=== PATIENT | male | born 1990 | race Two or more races ===

== ENCOUNTER → 2017-01-13 | Outpatient (CLI) | payer OTHER ==
--- NOTE | 2017-01-14 15:30 | SLEEP ---
DATE OF STUDY: 01/13/2017 ATTENDING PHYSICIAN: Dr. oBb Nettles. The patient is 26 years old who weighs 320 pounds with a BMI of 48.7. The patient's [place] score was 7. A home sleep study was performed at [facility]. Total recording time was 407 minutes. During the night study, the patient had no central apneas, no mixed apneas, but there were 263 obstructive apneas and 33 hypopneas. The patient's AHI was 44 per hour, supine AHI 39 per hour. Nocturnal oximetry study revealed hypoxemia. The patient's average oxygen saturation is 89% with the lowest of 59%. 103 minutes were spent in oxygen saturation less than 90%. Mean heart rate was 69 beats per minute. IMPRESSION: 1. Severe sleep apnea-hypopnea syndrome with an AHI of 44 per hour. 2. Nocturnal hypoxia secondary to obstructive sleep apnea. RECOMMENDATIONS: 1. The patient should return for in-lab CPAP titration study. 2. Once optimum CPAP pressure is achieved, then follow up in 4-6 weeks to assess compliance with CPAP and to document clinical improvement. 3. Weight loss is strongly advised. 4. Avoid [employer] depressants. 5. Cautioned regarding driving until symptoms of sleep apnea have resolved with the use of CPAP. GERMÁN MENESES MD DR: ROSE/nts JOB#: [id number] / [id number] [facility] Bob Nettles MD MTDD
== END ==
LOC: RT 09:53
PROVIDERS: ATTEND Family Medicine
DX: R06.81 Apnea, not elsewhere classified (principal)
CPT/HCPCS: G0399

== ENCOUNTER 2021-05-13 18:00 | Emergency (ER) | payer SELFPAY ==
[~2021-05-13] VITALS: Ht 177.8 cm; Wt 130.0 kg
[2021-05-13] MEDS ORDERED: methylPREDNISolone ACETATE 80 MG/ML VIAL. IM ONE (19:30)
[2021-05-13 19:44] LABS: BILIRUBIN,URINE NEGATIVE (NEG); CLARITY,URINE CLEAR; COLOR,URINE YELLOW; PH,URINE 6.5 (<5.0-8.0); PROTEIN,URINE NEGATIVE (NEG-TRACE)
[2021-05-13 19:45] LABS: NITRITE,URINE NEGATIVE (NEG); UROBILINOGEN,URINE 0.2 mg/dL (0.2 mg/dL)
[2021-05-13 19:48] LABS: BACTERIA,URINE 0 /HPF (0-FEW); RBC,URINE 0 /HPF (0-2); WBC,URINE 0 /HPF (0-4)
--- NOTE | 2021-05-13 20:14 | RAD ---
EXAMINATION: CT LUMBAR SPINE WO CLINICAL HISTORY: Midline lumbar pain. TECHNIQUE: Spiral, high resolution axial images were obtained from the thoracolumbar junction to the sacrum with sagittal and coronal planar reconstructions. CT Dose Reduction Employed: One or more of the following individualized dose reduction techniques wer e utilized for this examination: 1. Automated exposure control 2. Adjustment of the mA and/or kV ac cording to patient size 3. Use of iterative reconstruction technique. 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 There is also normal variant inco mplete fusion of the posterior elements of L5. Alignment: Normal anatomic alignment. Osseous Structures: No evidence of acute fracture or spondylolisthesis. Degenerative Changes: No significant degenerative changes. Paraspinal Soft Tissues: Paraspinal soft tissues unremarkable. IMPRESSION: No acute osseous abnormality. Electronically signed by: Eliud Moya DO (05/13/2021 8:12 PM) ANDREA
[2021-05-13] MEDS ORDERED: KETOROLAC 60 MG/2 ML VIAL. IM ONE (20:15)
[2021-05-13] MEDS ORDERED: TRIAMCINOLONE PRES.FREE 40 MG/ML VIAL. IM ONE (20:30)
[2021-05-13] MEDS ORDERED: PRED20TA PO (20:33)
[2021-05-13] MEDS ORDERED: IBUP-1007 PO (20:33)
--- NOTE | 2021-05-13 20:33 | PHYS DOC ---
Past Medical History Past Surgical History: No Surgical History Smoking Status: Current Every Day Smoker Alcohol Use: Occasionally General Adult EDM: Chief Complaint: BACK PAIN - NO INJURY HPI: HPI: Patient is a 30-year-old male who presents to the emergency department complaining of low back pain after feeling a sharp stabbing pain in the center of his low back last night at approximately 2300 when he bent over to pick something up. Patient denies traumatic injury to his low back. Denies numbness or tingling to his buttocks or genitals, denies radiation of this pain down his lower extremities. Denies loss of bowel or bladder control. Denies urinary retention. Patient denies recent fever or chills. Patient denies rashes, chest pains, chest palpitations, shortness of breath, chest or nasal congestion. Patient denies other physical complaints or physical concerns. Patient states he did take 2 extra strength Tylenols at 1700 today with minimal relief in pain reporting a 8 out of 10 pain. Patient is asking for a work excuse. Patient denies history of cigarette smoking, alcohol or illicit drug use, denies history of IV drug use. Review of Systems: Review of Systems: 14 body systems of review of systems have been reviewed. See HPI for pertinent positives and negative responses, otherwise all other systems are negative, nonpertinent or noncontributory. Constitutional: Negative except as outlined in HPI above. Skin: Negative except as outlined in HPI above. Eyes: Negative except as outlined in HPI above. HENT: Negative except as outlined in HPI above. Respiratory: Negative except as outlined in HPI above. Cardiovascular: Negative except as outlined in HPI above. GI: Negative except as outlined in HPI above. : Negative except as outlined in HPI above. Musculoskeletal: Negative except as outlined in HPI above. Integument: Negative except as outlined in HPI above. Neurologic: Negative except as outlined in HPI above. Endocrine: Negative except as outlined in HPI above. Lymphatic: Negative except as outlined in HPI above. Psychiatric: Negative except as outlined in HPI above. Heart Score: C/O Chest Pain: No Risk Factors: Risk Factors: DM, Current or recent (<one month) smoker, HTN, HLP, family history of CAD, obesity. Risk Scores: Score 0 - 3: 2.5% MACE over next 6 weeks - Discharge Home Score 4 - 6: 20.3% MACE over next 6 weeks - Admit for Clinical Observation Score 7 - 10: 72.7% MACE over next 6 weeks - Early Invasive Strategies Current Medications: Current Medications Medications (Trade) Dose Ordered Sig/[facility] Start Time Stop Time Status Last Admin Dose Admin Ketorolac Tromethamine (Toradol Im) 60 mg 1X ONCE 05/13/21 20:15 05/13/21 20:16 Methylprednisolone Acetate (DEPO-Medrol 80MG VIAL) 80 mg 1X ONCE 05/13/21 19:30 05/13/21 19:59 DC Triamcinolone Acetonide (Kenalog-40) 60 mg 1X ONCE 05/13/21 20:30 05/13/21 20:31 Allergies: Allergies: Allergies Coded Allergies Type Severity Reaction Last Updated Verified No Known Drug Allergies 05/13/21 No Physical Exam: PE: Constitutional: Well developed, well nourished, no acute distress, non-toxic appearance. 30-year-old male in no apparent distress. HENT: Normocephalic, atraumatic. Eyes: Conjunctiva normal, no discharge. Neck: Normal range of motion, no stridor. Cardiovascular: No cyanosis appreciated, distal cap refill less than 2 seconds. Lungs & Thorax: Patient is in no respiratory distress, no audible adventitious lung sounds appreciated. Abdomen: Nontender, no abnormalities noted. Skin: Warm, dry, no erythema, no rash. Back: No deformities appreciated. No skin discoloration of the low back appre ciated, no left-sided or right-sided CVA TTP, there is pain to palpation along mid lumbar spine, no other vertebral spinal column pain to palpation appreciated. Extremities: No tenderness, no cyanosis, no clubbing, ROM intact, no edema. Patient has intact 5/5 motor strength with hip flexion, knee extension/flexion/adduction, plantar/dorsiflexion at ankle and dorsiflexion of the toes of bilateral lower extremities. Neurologic: Alert and oriented X 3, normal motor function, normal sensory function, no focal deficits noted. Psychologic: Affect normal, judgement normal, mood normal. Current Patient Data: Labs: Laboratory Tests Test 05/13/21 19:36 Urine Collection Type Unknown Urine Color Yellow Urine Clarity Clear Urine pH 6.5 (<5.0-8.0) Urine Specific [place] 1.020 (1.000-1.030) Urine Protein Negative mg/dL (NEG-TRACE) Urine Glucose (UA) Negative mg/dL (NEG) Urine Ketones (Stick) Negative mg/dL (NEG) Urine Blood Negative (NEG) Urine Nitrite Negative (NEG) Urine Bilirubin Negative (NEG) Urine Urobilinogen Dipstick 0.2 mg/dL (0.2 mg/dL) Urine Leukocyte Esterase Negative (NEG) Urine RBC 0 /HPF (0-2) Urine WBC 0 /HPF (0-4) Urine Squamous Epithelial Cells Occ /LPF Urine Bacteria 0 /HPF (0-FEW) Urine Mucus Mod /LPF Vital Signs: Vital Signs Date Time Temp Pulse Resp B/P (MAP) Pulse Ox O2 Delivery O2 Flow Rate FiO2 05/13/21 19:20 98.6 92 17 137/84 (101) 96 Room Air 98.6 EKG: EKG: [] Radiology/Procedures: Radiology/Procedures: REASON: Midline lumbar pain PROCEDURE: CT LUMBAR SPINE WO CONTRAST EXAMINATION: CT LUMBAR SPINE WO CLINICAL HISTORY: Midline lumbar pain. TECHNIQUE: Spiral, high resolution axial images were obtained from the thoracolumbar junction to the sacrum with sagittal and coronal planar reconstructions. CT Dose Reduction Employed: One or more of the following individualized dose reduction techniques were utilized for this examination: 1. Automated exposure control 2. Adjustment of the mA and/or kV according to patient size 3. Use of iterative reconstruction technique. 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 There is also normal variant incomplete fusion of the posterior elements of L5. Alignment: Normal anatomic alignment. Osseous Structures: No evidence of acute fracture or spondylolisthesis. Degenerative Changes: No significant degenerative changes. Paraspinal Soft Tissues: Paraspinal soft tissues unremarkable. IMPRESSION: No acute osseous abnormality. Electronically signed by: Eliud Moya DO (05/13/2021 8:12 PM) [facility] Course & Med Decision Making: Course & Med Decision Making Pertinent Labs and Imaging studies reviewed. (See chart for details) 30-year-old male, vital signs reviewed, presents emergency department concerning low back pain. Physical examination consistent with lumbago, patient has intact 5/5 motor strength with hip flexion, knee flexion,extension, knee adduction, plantar/dorsiflexion at the ankle, and dorsiflexion of the toe bilaterally. Additionally there was no hx of IVDU, Immunosuppression, cancer, fe mark/chills, saddle anesthesia, bowel/bladder incontinence/retention, or trauma that would necessitate emergent imaging. Will order IM Toradol, IM steroid injection, p.o. pain medication, however will order CT imaging of lumbar spine related to explanation of events. Urinalysis assay. CT of L-spine negative for acute process, the patient's urine is not infected, there is no hematuria. Upon reevaluation of the patient, the patient reports he is feeling some pain relief with medications given in the ED. Discussed with patient home care for sciatica pain, will give work excuse, may use [id number] Tylenol and/or ibuprofen for ongoing discomfort, will provide short regimen of 40 mg prednisone p.o. x10 days. Discussed return to ER precautions and concerns, strict follow-up with primary care for ongoing discomfort and management of back pain, patient gave verbal understanding of and is amenable to ED discharge planning. Discussed with the patient all findings and diagnostic testing as well as the need to follow-up with their primary care provider for further evaluation and treatment or return to the ED if any new or worsening symptoms. Strict return precautions were also discussed at length, the patient voiced understanding and agreement with the discharge planning. The patient was nontoxic in appearance, in no apparent distress, and hemodynamically stable at the time of disposition. Hunter Disclaimer: Hunter Disclaimer: This electronic medical record was generated, in whole or in part, using a voice recognition dictation system. Departure Departure Impression: Primary Impression: Lumbago Qualified Codes: M54.50 - Low back pain, unspecified Disposition: 01 HOME / SELF CARE / HOMELESS Condition: GOOD Referrals: NO PCP (PCP) Patient Instructions: Back Pain, Adult Additional Instructions: You were seen today in the emergency department for sudden onset of low back pain. A CT scan did not show any concerning findings of your lumbar spine. You were given an intramuscular injection of pain medication and steroid. I am prescribing you a oral steroid that you will take once a day for the next 10 days until complete. You may continue to use [id number] Tylenol and/or Motrin for pain. I am providing you a work excuse for the next 2 days. Please take this time to use ice packs to your low back 30 minutes on and 30 minutes off while awake. I am also attaching a list of area healthcare clinics and providers for you to follow-up with and establish primary care. Please call tomorrow for an appointment to be seen soon. Thank you for visiting our Emergency Department. It was a pleasure taking care of you today in the emergency department and we appreciate you trusting us with your care. If any additional problems come up don't hesitate to return to visit us. Please follow up with your primary care provider so they can plan additional care if needed and know about the problem that you had. If symptoms worsen come back to the Emergency Department. Any concerning symptoms that start such as chest pain, shortness of air, weakness or numbness on one side of the body, running high fevers or any other concerning symptoms return to the ER. [facility] [address] [place] [address] [facility] [address] [place] [address] [facility] [address] [place] [address] [facility] [address] [place] [address] [facility] [address] [place] [address] [facility] [address] [place] [address] [facility] [address] [place] [address] [facility] [address] [place] [address] [facility] [address] [place] [address] [facility] [address] [place] [address] Scripts Prednisone (PREDNISONE) 20 Mg Tablet 2 TAB PO DAILY for 10 Days, #20 TAB 0 Refills Prov: CLARIAS ELIZABETH MECHANISM INSPECTOR 05/13/21 Ibuprofen (IBUPROFEN) 600 Mg Tablet 600 MG PO PRN Q6HRS PRN for INFLAMMATION, #30 TAB 0 Refills Prov: CLARISA ELIZABETH MECHANISM INSPECTOR 05/13/21 CLARISA ELIZABETH APRN May 13, 2021 20:33
[2021-05-13 21:00] VITALS: BP 164/99
[2021-05-13] MEDS ORDERED: HYDROcodone/APAP 5/325MG 1 TAB TABLET PO ONE (21:15)
== END 2021-05-13 21:10 | disposition home or self-care (01) ==
LOC: ER 18:00
DX: M54.50 Low back pain, unspecified (principal); F17.200 Nicotine dependence, unspecified, uncomplicated
CPT/HCPCS: 72131; 81001; 96372; 99284; J1885; J3301